=== PATIENT | female | born 2000 | race Caucasian/White ===

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

== ENCOUNTER 2022-03-21 17:37 | Emergency (ER) | payer BC ==
[2022-03-21 19:27] VITALS: BP 124/72; PULSE 94; RESP 20; TEMP 98.2
[2022-03-21 19:50] LABS: Appearance,Urine Clear (Clear); Bilirubin,Urine Negative (Negative); Blood,Urine Large (Negative); Color,Urine Light Yellow; Glucose,Urine (UA) Negative (Negative); Hyaline Casts,Urine 1 /lpf (0-2); Ketones,Urine Negative (Negative); Leukocyte Esterase,Urine Negative (Negative); Mucus,Urine Few /hpf; Nitrite,Urine Negative (Negative); Protein,Urine Negative (Negative); RBC,Urine 66 /hpf (0-5); Specific Gravity,Urine 1.009 (1.001-1.035); Urobilinogen,Urine <2.0 mg/dL (<2.0); WBC,Urine 3 /hpf (0-5)
--- NOTE | 2022-03-21 20:39 | XR ---
EXAMINATION TYPE: XR KUB DATE OF EXAM: 03/21/2022 COMPARISON: NONE HISTORY: Abdominal pain TECHNIQUE: 2 views upright FINDINGS: Bowel gas pattern is normal. No sign of intestinal obstruction or pneumoperitoneum. Fecal p attern is normal. Lung bases are clear. There are no pathologic calcifications. IMPRESSION: Nonacute abdomen.
--- NOTE | 2022-03-21 23:21 | ED ---
Female Urogenital HPI - General Chief complaint: Urogenital Stated complaint: Positive for E Coli Time Seen by Provider: 03/21/22 22:51 Source: patient, RN notes reviewed Mode of arrival: ambulatory Limitations: no limitations - History of Present Illness Initial comments: This is a pleasant 21-year-old female presents to the emergency department stating that she was diagnosed with a urinary tract infection at urgent care on Saturday. Patient was put on cephalexin 500 mg twice a day. Yesterday she felt a bit fatigued at work. Patient states she felt a little lightheaded and did not feel like she wanted to continue work. Patient was called by the urgent care today and told that the urine had cultured out E. coli. Patient was told to continue the same antibiotic. Patient really has no significant complaints today stating that when she told urgent care about her symptoms yesterday she was told to go to the emergency department. Patient does have current menstrual. Going on. Describes some menstrual cramps. No vomiting. No fever. Patient denying any vaginal discharge. No headache, no fever or chills, no changes in vision or hearing, no sore throat or difficulty with speech, no neck pain, no chest pain or shortness of breath, no abdominal pain, no nausea or vomiting, no changes in urination or bowel movements, no numbness or tingling, no extremity pain, no skin rashes or lesions. - Related Data Home Medications Medication Instructions Recorded Confirmed Methylphenidate HCl [Concerta] 54 mg PO DAILY 01/02/16 07/26/16 Allergies Allergy/AdvReac Type Severity Reaction Status Date / Time No Known Allergies Allergy Verified 03/21/22 19:27 Review of Systems ROS Statement: Those systems with pertinent positive or pertinent negative responses have been documented in the HPI. ROS Other: All systems not noted in ROS Statement are negative. Past Medical History Past Medical History: No Reported History Additional Past Medical History / Comment(s): kidney infection. History of Any Multi-Drug Resistant Organisms: None Reported Past Surgical History: No Surgical Hx Reported Past Psychological History: ADD/ADHD Past Alcohol Use History: None Reported Past Drug Use History: None Reported General Exam - General Exam Comments Initial Comments: Healthy-appearing 21-year-old female in no acute distress. Patient does not appear to be ill or toxic. Limitations: no limitations General appearance: alert, in no apparent distress Head exam: Present: atraumatic, normocephalic, normal inspection Eye exam: Present: normal appearance, PERRL, EOMI. Absent: scleral icterus, conjunctival injection, periorbital swelling ENT exam: Present: normal exam, normal oropharynx, mucous membranes moist, TM's normal bilaterally, normal external ear exam Neck exam: Present: normal inspection, full ROM. Absent: tenderness, meningismus, lymphadenopathy Respiratory exam: Present: normal lung sounds bilaterally. Absent: respiratory distress, wheezes, rales, rhonchi, stridor Cardiovascular Exam: Present: regular rate, normal rhythm, normal heart sounds. Absent: systolic murmur, diastolic murmur, rubs, gallop, clicks GI/Abdominal exam: Present: soft, normal bowel sounds. Absent: distended, tenderness, guarding, rebound, rigid, diminished bowel sounds, hyperactive bowel sounds, hypoactive bowel sounds, organomegaly, mass, bruit, pulsatile mass, hernia Extremities exam: Present: normal inspection, full ROM, normal capillary refill. Absent: tenderness, pedal edema, joint swelling, calf tenderness Back exam: Present: normal inspection Neurological exam: Present: alert, oriented X3, CN II-XII intact Psychiatric exam: Present: normal affect, normal mood Skin exam: Present: warm, dry, intact, normal color. Absent: rash Course Vital Signs 03/21/22 19:24 Temperature 98.2 F Pulse Rate 94 Respiratory 20 Rate Blood Pressure 124/72 O2 Sat by Pulse 0 L Oximetry Medical Decision Making - Medical Decision Making Patient had waited in the waiting room quite some time. I evaluated the patient in [facility]. Patient's examination was benign. Abdomen was soft, nontender, nondistended. The urinary findings with the patient. It appears that the patient's urine is clearing. It was consistent with contamination from the patient's current menstrual. It was only 3 white blood cells per high-powered field. Suspect the patient is getting better on cephalexin. Certainly some of the patient's symptomology at work but related to the medication itself. Also the urinary tract infection can cause this type of symptomatology. Patient had no specific pain. We did discuss the possibility of other etiologies as patient did have some cramping in the lower abdomen earlier in the day. Likely related to her menstrual. Of course we discussed the possibility of other etiologies such as appendicitis. Patient was told to return immediately if fever develops, or any other problems arise. Patient voiced understanding. Patient here with her mother as well. Patient was told to return to the ER for any signs or symptoms worsen. Told to return immediately if any other problems arise. All questions answered. Treatment plan discussed. Patient in agreement Every effort has been made to ensure accuracy of this dictation. However, due to the limitations of electronic medical records and dictation devices, errors in charting still occur. Passport Application Examiner Dr. Peterson - Lab Data Lab Results 03/21/22 03/21/22 Range/Units 19:30 19:30 Urine Color Light Yellow Urine Appearance Clear (Clear) Urine pH 6.0 (5.0-8.0) Ur Specific [place] 1.009 (1.001-1.035) Urine Protein Negative (Negative) Urine Glucose (UA) Negative (Negative) Urine Ketones Negative (Negative) Urine Blood Large H (Negative) Urine Nitrite Negative (Negative) Urine Bilirubin Negative (Negative) Urine Urobilinogen <2.0 (<2.0) mg/dL Ur Leukocyte Esterase Negative (Negative) Urine RBC 66 H (0-5) /hpf Urine WBC 3 (0-5) /hpf Hyaline Casts 1 (0-2) /lpf Urine Mucus Few H (None) /hpf Urine HCG, Qual Not Detected (Not Detectd) Disposition Clinical Impression: Urinary tract infection, Onset of menses Narrative: Resolving urinary tract infection Disposition: HOME SELF-CARE Condition: Good Instructions (If sedation given, give patient instructions): Urinary Tract Infection in Women (ED) Additional Instructions: Follow-up with your regular physician as directed. Return to the ER immediately if any symptoms worsen, new symptoms arise, or any other problems develop. Finish the antibiotic as directed. Ensure adequate hydration. Is patient prescribed a controlled substance at d/c from ED?: No Referrals: Cameron Regan DO [Primary Care Provider] - 03/23/22 Time of Disposition: 23:21
== END 2022-03-21 23:55 | disposition home or self-care (01) ==
LOC: EC 17:37
DX: N39.0 Urinary tract infection, site not specified (principal); N94.6 Dysmenorrhea, unspecified
CPT/HCPCS: 74018; 81001; 81025; 99284